=== PATIENT | female | born 1960 | race Caucasian/White ===

== ENCOUNTER → 2020-10-15 | Outpatient (CLI) | payer MEDICARE | LOC: EXRD 11:30 | DX: R60.0 Localized edema (principal) | CPT/HCPCS: 93970 ==

== ENCOUNTER → 2022-01-29 | Outpatient (CLI) | payer MEDICARE | LOC: LAB 13:03 | DX: R41.3 Other amnesia (principal); R51.9 Headache, unspecified; R35.0 Frequency of micturition; Z86.61 Personal history of infections of the central nervous system | CPT/HCPCS: 36415; 82565; 84520 ==

== ENCOUNTER → 2022-01-30 | Outpatient (CLI) | payer MEDICARE | LOC: EMI 01-20 09:00 → MRI 13:45 → EMI 02-05 11:00 → MRI 02-05 11:00 | DX: R35.0 Frequency of micturition (principal); R41.3 Other amnesia; R51.9 Headache, unspecified; Z86.61 Personal history of infections of the central nervous system; R90.82 White matter disease, unspecified | CPT/HCPCS: 70553; A9577 ==

== ENCOUNTER → 2022-03-03 | Outpatient (CLI) | payer MEDICARE ==
[~2022-03-03] MED LIST: COMPOUND TOP; CRESTOR 10 MG T10 MG PO; CYMBALTA60 MG PO; ESTRACE42.5 GM VG; GABAPENTIN600 MG PO; IBU600 MG PO; METFORMIN HCL500 MG PO; ONDANSETRON HCL8 MG PO; ONE DAILY FOR1 EAC3 PO; PROTONIX 40 MG40 M1 PO; TIZANIDINE HCL4 MG PO; TOPROL XL25 MG PO; VOLTAREN EC 5050 MG PO
[2022-03-03 14:16] LABS: HEMOGLOBIN 13.8 gm/dl (12.3-15.3); RED BLOOD COUNT 4.47 M/UL (4.00-5.10); WHITE BLOOD COUNT 9.2 K/UL (4.5-11.0)
[2022-03-03 14:35] LABS: BUN/CREATININE RATIO 24 (0-10)
== END ==
LOC: OPSV2 12:30
PROVIDERS: Obstetrics & Gynecology
DX: Z01.818 Encounter for other preprocedural examination (principal); N81.9 Female genital prolapse, unspecified
CPT/HCPCS: 71046; 80053; 81001; 85025; 87077; 87086; 87186; 93005